=== PATIENT | male | born 1965 ===

== ENCOUNTER 2019-08-10 13:23 | Emergency (ER) | payer OTHER ==
[~2019-08-10] VITALS: Ht 180.3 cm; Wt 87.1 kg
[2019-08-10] MEDS ORDERED: OMEPRAZOLE20 MG PO (13:45)
[2019-08-10] MEDS ORDERED: TESTOSTERONE INJ (13:45)
[2019-08-12 01:06] LABS: HCV ANTIBODY <0.1 (0.0-0.9); HIV SCREEN 4TH GENERATION WRFX Non Reactive (Non Reactive)
== END 2019-08-10 14:08 | disposition home or self-care (01) ==
LOC: ER 13:23
PROVIDERS: Emergency Medicine
DX: S61.214A Laceration without foreign body of right ring finger without damage to nail, initial encounter (principal); W45.8XXA Other foreign body or object entering through skin, initial encounter; Z79.899 Other long term (current) drug therapy; K21.9 Gastro-esophageal reflux disease without esophagitis
CPT/HCPCS: 84460; 86317; 86703; 86803; 87340; 87389; 99282